=== PATIENT | female | born 1935 | race Caucasian/White ===

== ENCOUNTER → 2016-10-21 | Outpatient (CLI) | payer MEDICARE ==
[2016-10-21 22:25] LABS: ABSOLUTE EOSINOPHILS # (AUTO) 0.2 10^3/uL (0.0-0.6); ABSOLUTE LYMPHOCYTES (AUTO) 1.3 10^3/uL (0.5-4.7); ABSOLUTE MONOCYTES (AUTO) 0.6 10^3/uL (0.1-1.4); BASOPHILS % (AUTO) 0.8 % (0-2); HEMATOCRIT 37.1 % (36.0-47.0); HEMOGLOBIN 11.8 g/dL (12.0-15.5); HGB HCT DIFFERENCE -1.7; LYMPHOCYTES % (AUTO) 24.9 % (13-45); MEAN CORPUSCULAR HEMOGLOBIN 24.2 pg (27.0-33.4); MEAN CORPUSCULAR HGB CONC 31.9 g/dL (32.0-36.0); MEAN CORPUSCULAR VOLUME 76 fl (80-97); MONOCYTES % (AUTO) 11.6 % (3-13); RED BLOOD COUNT 4.89 10^6/uL (3.72-5.28); RED CELL DISTRIBUTION WIDTH 13.5 % (11.5-14.0); SEGMENTED NEUTROPHILS % (AUTO) 58.7 % (42-78); WHITE BLOOD COUNT 5.2 10^3/uL (4.0-10.5)
[2016-10-21 22:41] LABS: ALANINE AMINOTRANSFERASE 22 U/L (9-52); ALBUMIN 3.5 g/dL (3.5-5.0); ALKALINE PHOSPHATASE 89 U/L (38-126); ANION GAP 10 (5-19); ASPARTATE AMINO TRANSFERASE 18 U/L (14-36); BILIRUBIN,TOTAL 0.4 mg/dL (0.2-1.3); BLOOD UREA NITROGEN 17 mg/dL (7-20); CALCIUM 9.7 mg/dL (8.4-10.2); CARBON DIOXIDE 29 mmol/L (22-30); CHLORIDE 101 mmol/L (98-107); CREATININE RESULT 0.37 mg/dL (0.52-1.25); GLUCOSE 153 mg/dL (75-110); POTASSIUM 4.4 mmol/L (3.6-5.0); SODIUM 140.3 mmol/L (137-145); TOTAL PROTEIN 6.8 g/dL (6.3-8.2)
[2016-10-21 22:42] LABS: APPEARANCE,URINE SLIGHTLY-CLOUDY; BILIRUBIN,URINE NEGATIVE (NEGATIVE); GLUCOSE, URINE NEGATIVE (NEGATIVE); KETONES,URINE NEGATIVE (NEGATIVE); LEUKOCYTE ESTERASE,URINE NEGATIVE (NEGATIVE); NITRITE,URINE NEGATIVE (NEGATIVE); PROTEIN,URINE NEGATIVE (NEGATIVE); URINE SPECIFIC GRAVITY 1.013; UROBILINOGEN,URINE NEGATIVE mg/dL (<2.0)
== END ==
LOC: LAB 22:08
PROVIDERS: ATTEND Internal Medicine
DX: G30.9 Alzheimer's disease, unspecified (principal); N19 Unspecified kidney failure
CPT/HCPCS: 36415; 80053; 81001; 85025

== ENCOUNTER 2016-11-29 16:32 | Emergency (ER) | payer MEDICARE, OTHER ==
--- NOTE | 2016-11-29 17:04 | ER Document Report ---
ED Medical Screen (RME) - General Stated Complaint: ARM PAIN Notes: Patient brought in by hospice worker and family member reporting red swollen area on left arm. Was on Levaquin for 3 days, changed yesterday to amoxicillin. Patient had a temperature of 101 this morning around 9:00. Patient's primary care physician is Dr. Nino. Patient is a DO NOT RESUSCITATE. I have greeted and performed a rapid initial assessment of this patient. A comprehensive ED assessment and evaluation of the patient, analysis of test results and completion of the medical decision making process will be conducted by additional ED providers. TRAVEL OUTSIDE OF THE [place] IN LAST 30 DAYS: No - Related Data Allergies/Adverse Reactions: No Known Allergies Allergy (Verified 11/29/16 17:02) Past Medical History GI Medical History: Reports: Hx Endoscopy - g tube Musculoskeltal Medical History: Reports Hx Arthritis, Reports Hx Musculoskeletal Deformity Past Surgical History: Reports: Hx Abdominal Surgery - PEG tube in place, Hx Orthopedic Surgery - Back surgery Physical Exam - Vital signs Vitals: Temp Pulse Resp BP Pulse Ox 98.2 F 99 36 H 143/71 H 99 11/29/16 16:53 11/29/16 16:53 11/29/16 16:53 11/29/16 16:53 11/29/16 16:53 - Notes Notes: Patient is nonverbal. 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 Chin strap in place for dislocated jaw couple weeks ago. Course - Vital Signs Vital signs: Temp Pulse Resp BP Pulse Ox 98.2 F 99 36 H 143/71 H 99 11/29/16 16:53 11/29/16 16:53 11/29/16 16:53 11/29/16 16:53 11/29/16 16:53
--- NOTE | 2016-11-29 17:38 | ER Document Report ---
ED General - General Chief Complaint: Skin Problem Stated Complaint: ARM PAIN TRAVEL OUTSIDE OF THE [place] IN LAST 30 DAYS: No - Related Data Allergies/Adverse Reactions: No Known Allergies Allergy (Verified 11/29/16 17:02) Past Medical History - Social History Smoking Status: Never Smoker Chew tobacco use (# tins/day): No Frequency of alcohol use: None Drug Abuse: None Family History: Reviewed & Not Pertinent Patient has suicidal ideation: No Patient has homicidal ideation: No Renal/ Medical History: Denies: Hx Peritoneal Dialysis GI Medical History: Reports: Hx Endoscopy - g tube Musculoskeltal Medical History: Reports Hx Arthritis, Reports Hx Musculoskeletal Deformity Past Surgical History: Reports: Hx Abdominal Surgery - PEG tube in place, Hx Orthopedic Surgery - Back surgery Physical Exam - Vital signs Vitals: Temp Pulse Resp BP Pulse Ox 98.2 F 99 36 H 143/71 H 99 11/29/16 16:53 11/29/16 16:53 11/29/16 16:53 11/29/16 16:53 11/29/16 16:53 Interpretation: Tachypneic. No: Hypotensive, Tachycardic, Hypoxic, Febrile Course - Vital Signs Vital signs: Temp Pulse Resp BP Pulse Ox 98.2 F 99 36 H 143/71 H 99 11/29/16 16:53 11/29/16 16:53 11/29/16 16:53 11/29/16 16:53 11/29/16 16:53
[2016-11-29] MEDS ORDERED: LIDOCAINE 2% INJ (20 MG/ML) 20 ML MDV INJ ONE (18:00)
[2016-11-29 19:53] LABS: HEMATOCRIT 39.1 % (36.0-47.0); HEMOGLOBIN 12.5 g/dL (12.0-15.5); HGB HCT DIFFERENCE -1.6; MEAN CORPUSCULAR HEMOGLOBIN 23.8 pg (27.0-33.4); MEAN CORPUSCULAR HGB CONC 31.9 g/dL (32.0-36.0); MEAN CORPUSCULAR VOLUME 75 fl (80-97); RED BLOOD COUNT 5.24 10^6/uL (3.72-5.28); RED CELL DISTRIBUTION WIDTH 13.6 % (11.5-14.0); WHITE BLOOD COUNT 16.4 10^3/uL (4.0-10.5)
[2016-11-29] MEDS ORDERED: SULFAMETHOXAZOLE/TRIMETHOPRIM 800-160 MG/20 ML UDCUP GT ONE (19:58)
[2016-11-29 20:09] LABS: ALANINE AMINOTRANSFERASE 33 U/L (9-52); ALBUMIN 3.6 g/dL (3.5-5.0); ALKALINE PHOSPHATASE 109 U/L (38-126); ANION GAP 14 (5-19); ASPARTATE AMINO TRANSFERASE 24 U/L (14-36); BILIRUBIN,TOTAL 0.8 mg/dL (0.2-1.3); BLOOD UREA NITROGEN 13 mg/dL (7-20); CALCIUM 10.1 mg/dL (8.4-10.2); CARBON DIOXIDE 24 mmol/L (22-30); CHLORIDE 100 mmol/L (98-107); CREATININE RESULT 0.36 mg/dL (0.52-1.25); GLUCOSE 161 mg/dL (75-110); POTASSIUM 4.8 mmol/L (3.6-5.0); SODIUM 137.7 mmol/L (137-145); TOTAL PROTEIN 7.2 g/dL (6.3-8.2)
[2016-11-29 20:19] LABS: BASOPHILS % (MANUAL) 0 % (0-2); EOSINOPHILS % (MANUAL) 0 % (0-6); LYMPHOCYTES % (MANUAL) 5 % (13-45); TOTAL CELLS COUNTED 100
[2016-11-29 20:20] LABS: ANISOCYTOSIS SLIGHT; HYPOCHROMASIA SLIGHT; MICROCYTOSIS SLIGHT
[2016-11-29 20:34] LABS: APPEARANCE,URINE CLEAR; BILIRUBIN,URINE NEGATIVE (NEGATIVE); GLUCOSE, URINE 150 mg/dL (NEGATIVE); KETONES,URINE NEGATIVE (NEGATIVE); LEUKOCYTE ESTERASE,URINE TRACE (NEGATIVE); NITRITE,URINE NEGATIVE (NEGATIVE); PROTEIN,URINE NEGATIVE (NEGATIVE); URINE SPECIFIC GRAVITY 1.009; UROBILINOGEN,URINE NEGATIVE mg/dL (<2.0)
[2016-11-29] MEDS ORDERED: CLINDAMYCIN 300 MG/D5W RTU 50 ML IV ONE (20:36)
--- NOTE | 2016-11-29 21:04 | ER Document Report ---
ED Skin Rash/Insect Bite/Abscs - General Chief Complaint: Skin Problem Stated Complaint: ARM PAIN Mode of Arrival: Stretcher Information source: Relative Cannot obtain history due to: Dementia TRAVEL OUTSIDE OF THE [place] IN LAST 30 DAYS: No - HPI Patient complains to provider of: Skin rash/lesion, Tender/swollen area - LEFT AXILLA / PROX. ARM Onset: Other - 3-4 DAYS Onset/Duration: Gradual Quality of pain: Other - CAN'T SAY Severity: Mild Skin Character: Abscess Skin Temperature: Warm Identify cause: No Similar symptoms previously: No Recently seen / treated by doctor: Yes - HAS GOTTEN LAVAQUIN & AMOXICILLIN FOR URI SXS. - Related Data Allergies/Adverse Reactions: No Known Allergies Allergy (Verified 11/29/16 17:02) Past Medical History - General Information source: Relative Cannot obtain history due to: Dementia - Social History Smoking Status: Never Smoker Chew tobacco use (# tins/day): No Frequency of alcohol use: None Drug Abuse: None Lives with: Family Family History: Reviewed & Not Pertinent Patient has suicidal ideation: No Patient has homicidal ideation: No - Medical History Notes: PATIENT DEMENTED & BEDRIDDEN, FAMILY PROVIDES TOTAL CARE @ HOME. - Past Medical History Cardiac Medical History: Reports: None Pulmonary Medical History: Reports: None Neurological Medical History: Reports: Other - DEMENTIA Endocrine Medical History: Reports: None Renal/ Medical History: Denies: Hx Peritoneal Dialysis GI Medical History: Reports: Hx Endoscopy - g tube Musculoskeltal Medical History: Reports Hx Arthritis, Reports Hx Musculoskeletal Deformity Psychiatric Medical History: Reports: Hx Dementia Past Surgical History: Reports: Hx Abdominal Surgery - PEG tube in place, Hx Orthopedic Surgery - Back surgery Review of Systems - Review of Systems Constitutional: Fever - LOW GRADE EENT: No symptoms reported Cardiovascular: No symptoms reported Respiratory: Cough Gastrointestinal: No symptoms reported Female Genitourinary: Post menopausal Skin: See HPI Physical Exam - Vital signs Vitals: Temp Pulse Resp BP Pulse Ox 98.2 F 99 36 H 143/71 H 99 11/29/16 16:53 11/29/16 16:53 11/29/16 16:53 11/29/16 16:53 11/29/16 16:53 Interpretation: Hypertensive, Tachypneic. No: Tachycardic, Febrile - General General appearance: Lethargic - BASELINE STATUS, PER FAMILY In distress: None - HEENT Head: Normocephalic Eyes: Normal Ears: Normal Nasal: Normal Mouth/Lips: Other - POOR DENTITION Mucous membranes: Normal - Respiratory Respiratory status: No respiratory distress - Cardiovascular Rhythm: Regular - Abdominal Inspection: Normal Distension: No distension Notes: G-TUBE IN PLACE - Back Back: Normal - Extremities General upper extremity: Other - FLEXION CONTRACTURES General lower extremity: Other - FLEXION CONTRACTURES - Neurological Neuro grossly intact: No - DEMENTED, @ BASELINE, PER FAMILY - Skin Skin Temperature: Warm Skin Moisture: Dry Skin Color: Normal Skin Turgor: Elastic Skin irregularity: Abscess - LEFT AXILLA / PROX. TRICEPS AREA, Tender indurated area - WITH FLUCTUANT CENTER Irregularity with: Tenderness, Warmth, Induration Course - Vital Signs Vital signs: Temp Pulse Resp BP Pulse Ox 98.2 F 99 36 H 143/71 H 99 11/29/16 16:53 11/29/16 16:53 11/29/16 16:53 11/29/16 16:53 11/29/16 16:53 - Laboratory Result Diagrams: 11/29/16 19:30 11/29/16 19:30 Laboratory results interpreted by me: 11/29/16 11/29/16 11/29/16 19:30 19:30 20:00 WBC 16.4 H MCV 75 L MCH 23.8 L MCHC 31.9 L Seg Neuts % (Manual) 88 H Lymphocytes % (Manual) 5 L Abs Neuts (Manual) 14.4 H Creatinine 0.36 L Glucose 161 H Urine Glucose (UA) 150 H Ur Leukocyte Esterase TRACE H Urine Ascorbic Acid 40 H Procedures - Incision and Drainage Left Upper Arm Time completed: 21:00 Type: Simple Anesthetic type: 2% Lidocaine mL's of anesthetic: 4 Blade size: 11 I&D procedure: Betadine prep applied, Iodoform packing placed, Other - BLUNTLY PROBED & SPREAD TO BREAK UP LOCULATIONS. Incision Method: Incision made by scalpel Amount/type of drainage: 30 cc CREAMY PURULENT Notes: 11/29/16 21:24 IRRIGATED COPIOUSLY WITH BETADINE / H2O. Discharge - Discharge Clinical Impression: Abscess of axilla, left Condition: Stable Disposition: HOME, SELF-CARE Instructions: Abscess ([facility]), Post Incision and Drainage, Trimethoprim-Sulfa ( [facility]), IV Antibiotics ([facility]) Additional Instructions: KEEP BANDAGE ON, CLEAN, AND DRY. GIVE ANTIBIOTIC (SULFAMETHOXAZOLE/TRIMETHOPRIM) DIRECTED, BEGINNING TOMORROW (FRIDAY) A.M. CONTINUE ALL OTHER MEDS USUAL. FRIDAY, REMOVE BANDAGE AND PACKING AND CLEAN WOUND GENTLY WITH SOAP & WATER, THEN REPLACE BANDAGE WITH A NEW ONE. REPEAT CLEANING AND BANDAGE CHANGE TWICE A DAY UNTIL WOUND IS HEALED. FOLLOW UP WITH YOUR PRIMARY CARE PROVIDER OR RETURN TO E.R. IF PROBLEMS, ANY TIME. Prescriptions: Sulfamethoxazole/Trimethoprim [Sulfamethoxazole-Tmp Susp] 20 ml GT BID #400 ml Referrals: KAYLAH WALLACE MD [Primary Care Provider] - Follow up as needed
[2016-11-29 23:40] VITALS: BP 127/53
== END 2016-11-29 22:20 | disposition home or self-care (01) ==
LOC: ER 16:32
PROC: 0H9CXZZ Drainage of Left Upper Arm Skin, External Approach (ICD-10-PCS; principal; 2016-11-29)
DX: L02.412 Cutaneous abscess of left axilla (principal); R50.9 Fever, unspecified; F03.90 Unspecified dementia, unspecified severity, without behavioral disturbance, psychotic disturbance, mood disturbance, and anxiety; R06.82 Tachypnea, not elsewhere classified; R53.83 Other fatigue; Z93.1 Gastrostomy status; Z74.01 Bed confinement status
CPT/HCPCS: 10060; 99283; 51701; 96375; 96365; 36415; 87040; 87070; 87205; 85025; 87075; 87077; 80053; 81001; 87186; J3490 ×3

== ENCOUNTER 2017-05-29 20:09 | Inpatient (IN) | payer MEDICARE ==
[2017-05-29] MEDS ORDERED: MORPHINE SULFATE 10 MG/ML INJ ONE (20:25)
[2017-05-29] MEDS ORDERED: HALOPERIDOL LACTATE INJ 5 MG/1 ML VIAL IV ONE (20:27)
[2017-05-29] MEDS ORDERED: MORPHINE SULFATE 10 MG/ML INJ IV PRN (20:27)
[2017-05-29] MEDS ORDERED: METRONIDAZOLE 500 MG/NS RTU 100 ML IV ONE (20:28)
[2017-05-29] MEDS ORDERED: PIPERACILLIN/TAZOBACTAM 3.375 GM VIAL IV ONE (20:28)
[2017-05-29] MEDS ORDERED: NORMAL SALINE 1000 ML 1,000 ML IV ONE (20:29)
--- NOTE | 2017-05-29 20:32 | ER Document Report ---
ED General - General Chief Complaint: Decreased LOC Stated Complaint: UNRESPONSIVE,ALTERED MENTAL STATUS Time Seen by Provider: 05/29/17 20:27 Cannot obtain history due to: Dementia, Altered mental status Notes: Patient is an 82-year-old female with a past medical history of supranuclear palsy and advanced dementia who presents with familial concerns about fever, shortness of breath and apparent respiratory distress with associated air hunger. She is a hospice patient due to her advanced dementia and supranuclear palsy. No additional history can be obtained as the patient is nonverbal. TRAVEL OUTSIDE OF THE [place] IN LAST 30 DAYS: No - Related Data Allergies/Adverse Reactions: No Known Allergies Allergy (Verified 11/29/16 17:02) Past Medical History - General Information source: Relative, Emergency Med Personnel - Social History Smoking Status: Never Smoker Frequency of alcohol use: None Drug Abuse: None Lives with: Family Family History: Reviewed & Not Pertinent Renal/ Medical History: Denies: Hx Peritoneal Dialysis GI Medical History: Reports: Hx Endoscopy - g tube Musculoskeltal Medical History: Reports Hx Arthritis, Reports Hx Musculoskeletal Deformity Psychiatric Medical History: Reports: Hx Dementia Past Surgical History: Reports: Hx Abdominal Surgery - PEG tube in place, Hx Orthopedic Surgery - Back surgery Review of Systems - Review of Systems -: Yes ROS unobtainable due to patient's medical condition Physical Exam - Vital signs Vitals: Resp Pulse Ox 37 H 98 05/29/17 20:15 05/29/17 20:15 Interpretation: Tachycardic, Tachypneic Notes: PHYSICAL EXAMINATION: GENERAL: Frail, chronically ill in appearance. In respiratory distress HEAD: Atraumatic, normocephalic. EYES: Pupils equal round and reactive to light, sclera anicteric, conjunctiva are normal. ENT: nares patent, oropharynx clear without exudates. Moderately dry mucous membranes. NECK: supple without lymphadenopathy LUNGS: Rhonchorous breath sounds in all lung hoffman. Respiratory rate is 48 breaths per minute on initial assessment. Respiratory distress is present. HEART: Regular tachycardia without murmurs ABDOMEN: Soft, bowel sounds are present EXTREMITIES: Contracted upper extremities as well as contracted lower extremities. NEUROLOGICAL: Patient does not follow commands PSYCH: Nonverbal, moaning incomprehensibly SKIN: Warm, Dry, normal turgor, no rashes or lesions noted. Course - Re-evaluation Re-evalutation: 05/29/17 20:29 Patient presents tachypneic, very ill in appearance, tachycardic, febrile, history and vitals are consistent with an aspiration pneumonia in the setting of advanced dementia and G-tube dependence. Patient is currently on home hospice but family is concerned that her symptoms are not being adequate control as she has been moaning in agony, breathing 30-40 times a minute, and very restless despite administration of oral morphine. The family is requesting treatment for likely aspiration pneumonia but is very clear that they would like to maintain comfort measures explicitly stating they do not want intubation, chest compressions, central line access. Will begin metronidazole and Zosyn for aspiration pneumonia, IV fluids, provide anxiolysis with a low dose of haloperidol, IV morphine for air hunger and pain control, and will continue to monitor closely for symptom management. I did spend greater than 30 minutes initially speaking with the family at length regarding this care plan. 05/29/17 20:36 X-ray does show a right lower lobe pneumonia likely aspiration given location and history. Will continue to monitor closely for symptom management. 05/29/17 20:51 Patient continues to demonstrate air hunger, mild agitation despite initial dose of morphine and haloperidol. Will give him an additional 2 mg of morphine , increase her morphine as needed to 6 mg every 2 hours and give an additional 1 mg of haloperidol. 05/29/17 21:20 Patient is symptomatically much improved at this time, no longer in respiratory distress, calm. Family states she appears much improved. Respiratory rate is not 26, saturating 99% on 5 L by nasal cannula. Will plan for admission 05/29/17 21:50 I have discussed this case with Dr. Harvey who is currently covering for Dr. Mckinney's patients and he has agreed to admit the patient to medical floor for comfort measures and IV antibiotics. Patient remained symptomatically much improved, no longer in distress, resting calmly. - Vital Signs Vital signs: Temp Pulse Resp BP Pulse Ox 98.7 F 101 H 23 H 124/55 L 99 05/30/17 00:06 05/30/17 00:06 05/30/17 00:06 05/30/17 00:06 05/30/17 00:06 - Laboratory Result Diagrams: 05/29/17 20:59 05/29/17 21:28 Laboratory results interpreted by me: 05/29/17 05/29/17 20:59 21:28 MCV 75 L MCH 24.9 L RDW 14.8 H Seg Neutrophils % 79.7 H Lymphocytes % 7.9 L Sodium 134.6 L Creatinine 0.36 L Glucose 240 H - Diagnostic Test Radiology reviewed: Image reviewed, Reports reviewed Radiology results interpreted by me: 05/30/17 04:01 Chest x-ray: Right lower lobe pneumonia Critical Care Note - Critical Care Note Total time excluding time spent on procedures (mins): 39 Comments: Critical care time spent obtaining history from patient or surrogate, discussions with consultants, development of treatment plan with patient or surrogate, evaluation of patient's response to treatment, examination of patient , ordering and performing treatments and interventions, ordering and review of laboratory studies, re-evaluation of patient's condition, ordering and review of radiographic studies and review of old charts Discharge - Discharge Clinical Impression: Comfort measures only status, Respiratory distress Aspiration pneumonia Qualifiers: Aspiration pneumonia type: unspecified Laterality: right Lung location: lower lobe of lung Qualified Code(s): J69.0 - Pneumonitis due to inhalation of food and vomit Condition: Critical Disposition: ADMITTED INPATIENT Admitting Provider: [facility] Unit Admitted: Medical Floor
[2017-05-29] MEDS ORDERED: KETOROLAC TROMETHAMINE INJ/PF 30 MG/1 ML SDV IV ONE (20:36)
--- NOTE | 2017-05-29 20:47 | RADIOLOGY REPORT (SQ) ---
EXAM DESCRIPTION: CHEST SINGLE VIEW COMPLETED DATE/TIME: 05/29/2017 8:40 pm REASON FOR STUDY: aspiration pneumonia COMPARISON: None. EXAM PARAMETERS: NUMBER OF VIEWS: One view. TECHNIQUE: Single frontal radiographic view of the chest acquired. RADIATION DOSE: NA LIMITATIONS: None. FINDINGS: LUNGS AND PLEURA: There is a right pleural effusion along with right lower lobe pneumonia. There is left retrocardiac airspace disease as well. MEDIASTINUM AND HILAR STRUCTURES: No masses. Contour normal. HEART AND VASCULAR STRUCTURES: Heart normal in size. Normal vasculature. BONES: No acute findings. HARDWARE: None in the chest. OTHER: No other significant finding. IMPRESSION: Bibasilar infiltrates right greater than left. There is a right pleural effusion as wel l. Findings are most consistent with pneumonia. TECHNICAL DOCUMENTATION: JOB ID: [id number]
[2017-05-29] MEDS ORDERED: MORPHINE SULFATE 10 MG/ML INJ IV ONE (20:50)
[2017-05-29] MEDS ORDERED: GLYCOPYRROLATE INJ 0.4 MG/2 ML VIAL IM ONE (21:10)
[2017-05-29 21:12] LABS: ABSOLUTE LYMPHOCYTES (AUTO) 0.7 10^3/uL (0.5-4.7); ABSOLUTE NEUT (AUTO) 6.7 10^3/uL (1.7-8.2); BASOPHILS % (AUTO) 0.2 % (0-2); EOSINOPHILS % (AUTO) 0.3 % (0-6); HEMATOCRIT 36.5 % (36.0-47.0); HEMOGLOBIN 12.2 g/dL (12.0-15.5); HGB HCT DIFFERENCE 0.1; LYMPHOCYTES % (AUTO) 7.9 % (13-45); MEAN CORPUSCULAR HEMOGLOBIN 24.9 pg (27.0-33.4); MEAN CORPUSCULAR HGB CONC 33.4 g/dL (32.0-36.0); MEAN CORPUSCULAR VOLUME 75 fl (80-97); MONOCYTES % (AUTO) 11.9 % (3-13); RED CELL DISTRIBUTION WIDTH 14.8 % (11.5-14.0); SEGMENTED NEUTROPHILS % (AUTO) 79.7 % (42-78); WHITE BLOOD COUNT 8.4 10^3/uL (4.0-10.5)
[2017-05-29 21:44] LABS: ANISOCYTOSIS SLIGHT; MICROCYTOSIS 1+; POIKILOCYTOSIS 1+
[2017-05-29 21:45] LABS: ACANTHOCYTES SLIGHT; BURR CELLS 1+; OVALOCYTES SLIGHT; TARGET CELLS SLIGHT
[2017-05-29] MEDS ORDERED: SCOPOLAMINE HYDROBROMIDE 1.5 MG PATCH.TD72 TD ONE (21:51)
[2017-05-29] MEDS ORDERED: ONDANSETRON HCL INJ/PF 4 MG/2 ML SDV IV PRN (21:54)
[2017-05-29 21:57] LABS: ANION GAP 7 (5-19); BLOOD UREA NITROGEN 16 mg/dL (7-20); CALCIUM 9.3 mg/dL (8.4-10.2); CARBON DIOXIDE 30 mmol/L (22-30); CHLORIDE 98 mmol/L (98-107); CREATININE RESULT 0.36 mg/dL (0.52-1.25); GLUCOSE 240 mg/dL (75-110); POTASSIUM 4.6 mmol/L (3.6-5.0); SODIUM 134.6 mmol/L (137-145)
[2017-05-30] MEDS: MORPHINE SULFATE 10 MG/ML INJ IV PRN ×4 (00:27→07:01)
[2017-05-30] MEDS: LORAZEPAM INJ 2 MG/1 ML VIAL IV PRN ×4 (00:48→07:02)
[2017-05-30] MEDS ORDERED: ATROPINE SULFATE 1% OPH SOLN 5 ML BOTTLE SL PRN (01:48)
[2017-05-30] MEDS ORDERED: ATROPINE SULFATE 1% OPH SOLN 5 ML BOTTLE ONE (02:14)
[2017-05-30] MEDS: ATROPINE SULFATE 1% OPH SOLN 5 ML BOTTLE SL PRN ×2 (02:17→19:59)
--- NOTE | 2017-05-30 05:23 | PDOC H&P ---
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 In the emergency room she is poorly responsive, having upper airway rhonchi, hypotension but respiratory distress is persistent. Chest x-ray reveals right lower lobe infiltrate her exam suggests ongoing aspiration. She is started on IV morphine and Haldol and IV antibiotics referred to the hospitalist for comfort measures only. Patient's daughters who are power of assistant district attorney her at bedside and able to describe approximately 48 hours of unusual dark material backing up her feeding tube. Patient's daughters are understanding of the extremely poor prognosis given recurrent aspiration and a end-stage progressive super nuclear palsy patient to spite IV antibiotic attempt. 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 Lives with: Family Smoking Status: Never Smoker Frequency of Alcohol Use: None Hx Recreational Drug Use: No Drugs: None Hx Prescription Drug Abuse: No - Advance Directive Resuscitation Status: DNR & Comfort Measures Only Family History Family History: Reviewed & Not Pertinent Parental Family History Reviewed: Yes Children Family History Reviewed: Yes Sibling(s) Family History Reviewed.: Yes Medication/Allergy Home Medications: Sulfamethoxazole/Trimethoprim [Sulfamethoxazole-Tmp Susp] 20 ml GT BID #400 ml 11/29/16 Allergies/Adverse Reactions: No Known Allergies Allergy (Verified 11/29/16 17:02) Review of Systems ROS unobtainable: Due to mental status Physical Exam Vital Signs: Temp Pulse Resp BP Pulse Ox 98.7 F 101 H 23 H 124/55 L 99 05/30/17 00:06 05/30/17 00:06 05/30/17 00:06 05/30/17 00:06 05/30/17 00:06 Intake & Output 05/28/17 05/29/17 05/30/17 11:59 11:59 11:59 Weight 52 kg General appearance: PRESENT: thin, other - Cervical extension contracture, temporal wasting, cachexia and contractures Head exam: PRESENT: atraumatic, normocephalic Eye exam: ABSENT: EOMI, PERRLA Ear exam: PRESENT: normal external ear exam Mouth exam: PRESENT: dry mucosa, tongue midline Neck exam: ABSENT: carotid bruit, JVD, lymphadenopathy, thyromegaly Respiratory exam: PRESENT: accessory muscle use, crackles, decreased breath sounds, rales, retraction, rhonchi, tachypnea Cardiovascular exam: PRESENT: RRR. ABSENT: diastolic murmur, rubs, systolic murmur Pulses: PRESENT: normal dorsalis pedis pul Vascular exam: PRESENT: normal capillary refill GI/Abdominal exam: PRESENT: diminished bowel sounds, hypoactive bowel sounds, soft. ABSENT: firm Rectal exam: PRESENT: deferred Extremities exam: PRESENT: full ROM. ABSENT: calf tenderness, clubbing, pedal edema Neurological exam: PRESENT: altered Focused psych exam: PRESENT: catatonic Skin exam: PRESENT: dry, intact, warm. ABSENT: cyanosis, rash Results Impressions: Chest X-Ray 05/29/17 20:27 IMPRESSION: Bibasilar infiltrates right greater than left. There is a right pleural effusion as well. Findings are most consistent with pneumonia. Assessment & Plan - Diagnosis (1) Aspiration pneumonia Qualifiers: Aspiration pneumonia type: unspecified Laterality: right Lung location: lower lobe of lung Qualified Code(s): J69.0 - Pneumonitis due to inhalation of food and vomit Is this a current diagnosis for this admission?: Yes Plan: Secondary to end-stage progressive super nuclear palsy possibly complicated by ileus. Trial IV antibiotics and supportive care, evaluate chemistry for electrolyte abnormality, grave prognosis (2) Comfort measures only status Is this a current diagnosis for this admission?: Yes Plan: IV morphine, Ativan and transdermal scopolamine (3) Respiratory distress Is this a current diagnosis for this admission?: Yes Plan: Supportive measures. - Time Time Spent: 50 to 70 Minutes - Inpatient Certification Medical Necessity: Need Close Monitoring Due to Risk of Patient Decompensation
--- NOTE | 2017-05-30 09:24 | PDOC PROGRESS REPORT ---
Subjective Progress Note for:: 05/30/17 Subjective:: She is unresponsive. Her family is at bedside. Physical Exam Vital Signs: Temp Pulse Resp BP Pulse Ox 98.7 F 101 H 23 H 124/55 L 99 05/30/17 00:06 05/30/17 00:06 05/30/17 00:06 05/30/17 00:06 05/30/17 00:06 Intake & Output 05/29/17 05/30/17 05/31/17 06:59 06:59 06:59 Intake Total 0 Output Total 0 Balance 0 Weight 52 kg General appearance: PRESENT: no acute distress, other - Cachectic Respiratory exam: PRESENT: unlabored Neurological exam: PRESENT: altered Results Impressions: Chest X-Ray 05/29/17 20:27 IMPRESSION: Bibasilar infiltrates right greater than left. There is a right pleural effusion as well. Findings are most consistent with pneumonia. Assessment & Plan - Diagnosis (1) Aspiration pneumonia Qualifiers: Aspiration pneumonia type: unspecified Laterality: right Lung location: lower lobe of lung Qualified Code(s): J69.0 - Pneumonitis due to inhalation of food and vomit Is this a current diagnosis for this admission?: Yes Plan: Comfort measures (2) Progressive supranuclear palsy Plan: End stage. Continue comfort measures
[2017-05-30] MEDS ORDERED: LEVOFLOXACIN 750 MG/D5W RTU 750 MG/150 ML RTUPB IV SCH (10:00)
[2017-05-31] MEDS: LORAZEPAM INJ 2 MG/1 ML VIAL IV PRN (09:55)
[2017-05-31] MEDS ORDERED: VANCOMYCIN HCL INJ 1000 MG VIAL IV ONE (11:07)
--- NOTE | 2017-05-31 11:23 | PROGRESS NOTE E ---
Progress Note NAME: ARGELIA RODRIGUEZ : 1935 AGE: 82Y DATE: 05/31/2017 ROOM: 534 SUBJECTIVE: The patient is an 82-year-old female, who had was admitted with abdominal pain, pneumonia. She has history of dementia, arthritis. The patient was made comfort care yesterday. OBJECTIVE: GENERAL: The patient lying in bed, not responding. VITAL SIGNS: Heart rate 115, temperature 98.4, blood pressure 106/66, respiratory 18. HEENT: Head normocephalic, atraumatic. Pupils round, reactive to light and accommodation bilaterally. Extraocular movements intact. Ears: Tympanic membranes intact bilateral. NECK: Supple. No increased JVD. No thyromegaly. No lymphadenopathy. CARDIOVASCULAR: Normal S1, S2. Regular rate and rhythm. No murmur. No gallop. RESPIRATORY: Lungs clear. ABDOMEN: Soft. ASSESSMENT: 1. PNEUMONIA. 2. Suprabulbar PALSY. PLAN: Continue comfort measures. DICTATING PHYSICIAN: MEHUL MCKEON M.D. [id number] PHY#: [id number] ID: [id number] JOB#: [id number] ACCT: [id number] cc: > MTDD
[2017-05-31] MEDS: MORPHINE SULFATE 10 MG/ML INJ IV PRN (16:54)
[2017-05-31] MEDS: ATROPINE SULFATE 1% OPH SOLN 5 ML BOTTLE SL PRN (16:55)
[2017-05-31] MEDS ORDERED: ATROPINE SULFATE 1% OPH SOLN 5 ML BOTTLE ONE (17:42)
[2017-06-01] MEDS: LORAZEPAM INJ 2 MG/1 ML VIAL IV PRN ×4 (08:17→21:23)
--- NOTE | 2017-06-01 11:03 | PROGRESS NOTE E ---
Progress Note NAME: ARGELIA RODRIGUEZ : 1935 AGE: 82Y DATE: 06/01/2017 ROOM: 534 SUBJECTIVE: The patient is a pleasant 82-year-old female, who was admitted with abdominal pain and pneumonia. She has history of dementia and arthritis. The patient was made comfort care 2 days ago. OBJECTIVE: GENERAL: She is lying in bed, not responding. VITAL SIGNS: Blood pressure 118/65, heart rate 117, temperature 97.4. HEENT: Head normocephalic, atraumatic. Pupils round, reactive to light and accommodation bilaterally. Extraocular movements intact. Ears: Tympanic membranes intact bilateral. No discharge from the ear. No discharge from nose. NECK: Supple. No increased JVD. No thyromegaly. No lymphadenopathy. CARDIOVASCULAR: Normal S1, S2. Regular rate and rhythm. No murmur. No gallop. RESPIRATORY: Lungs clear. ABDOMEN: Soft, nontender. MUSCULOSKELETAL: No edema. NEUROLOGICAL: Awake, alert. SKIN: No rash. LABORATORY: White blood count 8.2, hemoglobin 12.2, hematocrit 36. Sodium 135, potassium 4.6, chloride 98, creatinine 0.3. ASSESSMENT: 1. PNEUMONIA. 2. CEREBRAL PALSY. PLAN: Continue comfort measures. The family does not want to go to a intermediate. The other option is to go home with home health with hospice. Continue morphine and Ativan p.r.n. No labs. DICTATING PHYSICIAN: MEHUL MCKEON M.D. [id number] PHY#: [id number] ID: [id number] JOB#: [id number] ACCT: [id number] cc: >
[2017-06-01] MEDS: ATROPINE SULFATE 1% OPH SOLN 5 ML BOTTLE SL PRN (12:01)
[2017-06-02] MEDS: LORAZEPAM INJ 2 MG/1 ML VIAL IV PRN (04:46)
[2017-06-02 08:17] VITALS: BP 116/62
[2017-06-02] MEDS ORDERED: MORPHINE SULFATE 10 MG/ML INJ IV PRN (09:30)
[2017-06-02] MEDS ORDERED: LORAZEPAM INJ 2 MG/1 ML VIAL IV PRN (09:30)
[2017-06-02] MEDS ORDERED: ATROPINE SULFATE 1% OPH SOLN 5 ML BOTTLE SL PRN (09:30)
[2017-06-02] MEDS ORDERED: ONDANSETRON HCL INJ/PF 4 MG/2 ML SDV IV PRN (09:30)
--- NOTE | 2017-06-02 17:00 | PDOC PROGRESS REPORT ---
Subjective Progress Note for:: 06/02/17 Subjective:: No new issues. Physical Exam Vital Signs: Temp Pulse Resp BP Pulse Ox 98.1 F 111 H 20 116/62 100 06/02/17 07:38 06/02/17 07:38 06/02/17 07:38 06/02/17 07:38 06/02/17 07:38 Intake & Output 06/01/17 06/02/17 06/03/17 06:59 06:59 06:59 Intake Total 0 1 Output Total 0 Balance 0 1 Weight 50.5 kg 50.5 kg General appearance: PRESENT: other - appears stated age, frail Head exam: PRESENT: atraumatic, normocephalic Eye exam: PRESENT: other - eyes closed Mouth exam: PRESENT: other - dry mouth Respiratory exam: PRESENT: other - +rapid breathing Cardiovascular exam: PRESENT: tachycardia Pulses: PRESENT: other - right lower ext cool to touch and left lower ext warm to touch Vascular exam: PRESENT: pallor GI/Abdominal exam: PRESENT: other - +distension Neurological exam: PRESENT: other - sleeping Results Impressions: Chest X-Ray 05/29/17 20:27 IMPRESSION: Bibasilar infiltrates right greater than left. There is a right pleural effusion as well. Findings are most consistent with pneumonia. Assessment & Plan - Diagnosis (1) Progressive supranuclear palsy Is this a current diagnosis for this admission?: Yes Plan: End Stage: Comfort care. (2) Impaction of colon Is this a current diagnosis for this admission?: Yes Plan: Supportive care (3) Aspiration pneumonia Qualifiers: Aspiration pneumonia type: unspecified Laterality: right Lung location: lower lobe of lung Qualified Code(s): J69.0 - Pneumonitis due to inhalation of food and vomit Is this a current diagnosis for this admission?: Yes Plan: Supportive care. Hospice. (4) Respiratory distress Is this a current diagnosis for this admission?: Yes Plan: Supportive care. (5) Comfort measures only status Is this a current diagnosis for this admission?: Yes - Time Time Spent with patient: 15-24 minutes - Spoke with family and nursing.
--- NOTE | 2017-06-02 19:34 | Death Summary ---
Summary Date : 06/02/17 Time of :: 17:45 Autopsy: No Resuscitation Status: Comfort Measures Only Primary Care Provider: Not known Consulting Provider: None - Final Diagnosis (1) Progressive supranuclear palsy Is this a current diagnosis for this admission?: Yes (2) Impaction of colon Is this a current diagnosis for this admission?: Yes (3) Aspiration pneumonia Is this a current diagnosis for this admission?: Yes (4) Respiratory distress Is this a current diagnosis for this admission?: Yes (5) Comfort measures only status Is this a current diagnosis for this admission?: Yes Hospital Course:: Patient is an 82-year-old female that was admitted to our facility for end-of- life care. Patient had been home with hospice when she started experiencing air hunger tachycardia tachypnea and moaning. We had patient brought to the hospital for end-of-life care. Patient was given morphine, Ativan, and scopolamine to help with secretion control. Patient on 06/02/2017 at 5: 45 PM due to the end-stage progressive supranuclear palsy and aspiration pneumonia.
== END 2017-06-02 21:15 | disposition expired | DRG 56 ==
LOC: ER 20:09 → EH 21:54 → UNDOADMIN 22:20 → 5 05-30 00:05
PROVIDERS: ADMIT Internal Medicine; ATTEND Internal Medicine
DX: G23.1 Progressive supranuclear ophthalmoplegia [Steele-Richardson-Olszewski] (principal); J69.0 Pneumonitis due to inhalation of food and vomit; K56.41 Fecal impaction; Z66 Do not resuscitate; Z51.5 Encounter for palliative care; M19.90 Unspecified osteoarthritis, unspecified site; F03.90 Unspecified dementia, unspecified severity, without behavioral disturbance, psychotic disturbance, mood disturbance, and anxiety; Z79.899 Other long term (current) drug therapy
CPT/HCPCS: 36415; 71010; 80048; 85025; 87040; 96365; 96368; 96372; 96375; 99285; J1630; J1885; J2060; J2270; J2543; J7030